=== PATIENT | male | born 1970 | race African-American/Black ===

== ENCOUNTER 2020-12-15 02:44 | Inpatient (IN) | payer MEDICARE, MEDICAID ==
[~2020-12-15] VITALS: Ht 172.7 cm; Wt 72.6 kg
[2020-12-15 06:11] LABS: BASOPHILS % 0.6 % (0.0-2.0); EOSINOPHILS % 1.8 % (0.0-5.0); HEMATOCRIT. 46.1 % (42.0-52.0); HEMOGLOBIN. 15.8 g/dL (14.0-18.0); LYMPHOCYTES % 18.2 % (20.0-50.0); MEAN CORPUSCULAR HEMOGLOBIN 31.9 pg (28.0-32.0); MEAN CORPUSCULAR VOLUME 93.3 fL (80.0-94.0); MEAN PLATELET VOLUME 6.9 fl (7.4-10.4); MONOCYTES % 5.6 % (2.0-8.0); NEUTROPHILS % 73.8 % (40.0-76.0); PLATELET 232 x1000/uL (130-400); RED BLOOD CELL COUNT 4.94 mill/uL (4.7-6.1); RED CELL DISTRIBUTION WIDTH 14.2 % (11.6-14.6)
[2020-12-15 06:13] LABS: CHLORIDE 107 mEq/L (98-107)
[2020-12-15 06:19] LABS: ETHANOL BLOOD < 10 mg/dL
[2020-12-15 06:44] LABS: *AMPHETAMINES SCREEN URINE NEGATIVE (NEGATIVE)
[2020-12-15 06:45] LABS: *BARBITURATES SCREEN URINE NEGATIVE (NEGATIVE); *BENZODIAZEPINES SCREEN URINE NEGATIVE (NEGATIVE); *COCAINE SCREEN URINE NEGATIVE (NEGATIVE); CANNABINOID URINE SCREEN PRESUMTIVE POSITIVE (NEGATIVE); METHADONE URINE SCREEN NEGATIVE (NEGATIVE); OPIATES URINE SCREEN NEGATIVE (NEGATIVE); PHENCYCLIDINE URINE SCREEN NEGATIVE (NEGATIVE)
[2020-12-15] MEDS ORDERED: SODIUM CHLORIDE 0.9% 1,000 ML IV ONE (07:15)
[2020-12-15 14:20] VITALS: BP 146/96
[2020-12-15] MEDS ORDERED: SODIUM CHLORIDE 0.9% 1,000 ML IV SCH (15:00)
[2020-12-15 16:00] VITALS: BP 167/107
[2020-12-15] MEDS ORDERED: ABIL5 PO (16:20)
[2020-12-15] MEDS ORDERED: ALPR1TAB2 PO (16:20)
[2020-12-15] MEDS ORDERED: SERT25TA MT (16:20)
[2020-12-15] MEDS ORDERED: AMLODIPINE 10MG TABLET PO SCH (16:45)
[2020-12-15] MEDS ORDERED: ENOXAPARIN 40MG/0.4ML SYR SUBCUT SCH (18:00)
[2020-12-15] MEDS ORDERED: INSULIN LISPRO 100 UNITS/ML SUBCUT SCH (18:00)
[2020-12-15] MEDS ORDERED: BLOOD SUGAR DIAGNOSTIC STRIP TEST SCH (18:00)
[2020-12-15] MEDS ORDERED: CLONIDINE 0.1MG TABLET PO PRN (18:15)
[2020-12-15] MEDS ORDERED: DEXTROSE 50% WATER 50ML SYRINGE IV PRN (18:15)
[2020-12-15] MEDS ORDERED: SODIUM CHLORIDE 0.45% 1,000 ML IV SCH (18:15)
[2020-12-15] MEDS ORDERED: DIPHENHYDRAMINE 50MG/ML VIAL IV PRN (18:15)
[2020-12-15] MEDS ORDERED: ACETAMINOPHEN 325MG TABLET PO PRN (18:15)
[2020-12-15] MEDS ORDERED: ACETAMINOPHEN 650MG SUPP PR PRN ×2 (18:15)
[2020-12-15] MEDS ORDERED: ACETAMINOPHEN 650MG/20.3ML UDC GT PRN ×2 (18:15)
[2020-12-15] MEDS ORDERED: NA PHOS,M-B/NA PHOS,DI-BA ENEMA 118ML PR PRN (18:15)
[2020-12-15] MEDS ORDERED: MAGNESIUM/ALUMINUM HYDROXIDE/SIMETHICONE 30ML UDC PO PRN (18:15)
[2020-12-15 20:00] VITALS: BP 159/110
[2020-12-15] MEDS ORDERED: NICOTINE 7MG PATCH TD SCH (21:30)
[2020-12-16] MEDS ORDERED: SERTRALINE HCL 25MG TABLET PO SCH (09:00)
[2020-12-16] MEDS ORDERED: ARIPIPRAZOLE 5MG TABLET PO SCH (09:00)
[2020-12-16] MEDS ORDERED: ALPRAZOLAM 0.5 MG TABLET PO SCH (09:00)
[2020-12-16] MEDS ORDERED: PNEUMOCOCCAL 23-VAL P-SAC VAC 0.5 ML IM ONE (09:00)
[2020-12-16] MEDS ORDERED: INFLUENZA VACCINE 05/PF 0.5 ML SYRINGE IM ONE (09:00)
== END 2020-12-15 21:20 | disposition left against medical advice (07) | DRG 683 ==
LOC: ER 02:44 → EDBEDREQ 07:23 → 6EST 08:38 → EDBEDREQTM 08:41 → EDBEDREQ 08:41 → ENRESERV 11:29 → 6EST 14:54
PROVIDERS: ADMIT Family Medicine; ATTEND Family Medicine
DX: N17.0 Acute kidney failure with tubular necrosis (principal); E44.1 Mild protein-calorie malnutrition; F20.9 Schizophrenia, unspecified; F41.1 Generalized anxiety disorder; F43.10 Post-traumatic stress disorder, unspecified; Z53.29 Procedure and treatment not carried out because of patient's decision for other reasons; F12.90 Cannabis use, unspecified, uncomplicated; I10 Essential (primary) hypertension; E11.9 Type 2 diabetes mellitus without complications; F32.A Depression, unspecified; Z79.899 Other long term (current) drug therapy; Z88.8 Allergy status to other drugs, medicaments and biological substances; Z68.24 Body mass index [BMI] 24.0-24.9, adult; F41.0 Panic disorder [episodic paroxysmal anxiety]; R07.9 Chest pain, unspecified
CPT/HCPCS: 36415; 71045; 80053; 80305; 80320; 82962; 83036; 84443; 84484; 85025; 93005; 99285; J1650; J7030; G0480